=== PATIENT | male | born 1985 | race American Indian/Alaskan Native ===

== ENCOUNTER 2016-11-27 23:37 | Emergency (ER) | payer SELFPAY ==
--- NOTE | 2016-11-28 01:37 | Emergency Department Report ---
ED Lower Extremity HPI - General Chief Complaint: Extremity Injury, Lower Stated Complaint: LT KNEE PAIN Time Seen by Provider: 11/28/16 01:18 Source: patient Mode of arrival: Wheelchair Limitations: No Limitations - History of Present Illness Initial Comments: Patient comes into the ER today with complaints of left knee pain after falling down 5 steps yesterday. Patient denies any loss of consciousness, chest pain, abdominal pain. States that he was able get up on his own but he has not been able to put much weight on his left leg since the injury. The little amount weight patient has been on his legs he states that his knee does not feel stable and that it wants to give out on him. Patient denies any bleeding or any other complaints. MD Complaint: knee injury -: days(s) (1) - Related Data Previous Rx's Medication Instructions Recorded Last Taken Type Acetaminophen/Codeine [Tylenol 1 tab PO Q4HR PRN #20 tablet 11/28/16 Unknown Rx /Codeine # 3 tab] Naproxen [Naprosyn TAB] 500 mg PO BID #20 tablet 11/28/16 Unknown Rx Allergies Allergy/AdvReac Type Severity Reaction Status Date / Time No Known Allergies Allergy Unverified 11/28/16 00:18 ED Review of Systems ROS: Stated complaint: LT KNEE PAIN Other details as noted in HPI Constitutional: denies: chills, fever Eyes: denies: eye pain, eye discharge, vision change ENT: denies: ear pain, throat pain Respiratory: denies: cough, shortness of breath, wheezing Cardiovascular: denies: chest pain, palpitations Endocrine: no symptoms reported Gastrointestinal: denies: abdominal pain, nausea, diarrhea Genitourinary: denies: urgency, dysuria Musculoskeletal: joint swelling, arthralgia. denies: back pain Skin: denies: rash, lesions Neurological: denies: headache, weakness, paresthesias Psychiatric: denies: anxiety, depression Hematological/Lymphatic: denies: easy bleeding, easy bruising ED Past Medical Hx - Past Medical History Previous Medical History?: Yes Additional medical history: Right ACL tear states healed without surgery - Social History Smoking Status: Never Smoker - Medications Home Medications: Home Medications Medication Instructions Recorded Confirmed Last Taken Type Acetaminophen/Codeine [Tylenol 1 tab PO Q4HR PRN #20 tablet 11/28/16 Unknown Rx /Codeine # 3 tab] Naproxen [Naprosyn TAB] 500 mg PO BID #20 tablet 11/28/16 Unknown Rx ED Physical Exam - General Limitations: No Limitations General appearance: alert, in no apparent distress - Head Head exam: Present: atraumatic, normocephalic - Eye Eye exam: Present: normal appearance - ENT ENT exam: Present: mucous membranes moist - Neck Neck exam: Present: normal inspection - Respiratory Respiratory exam: Present: normal lung sounds bilaterally. Absent: respiratory distress - Cardiovascular Cardiovascular Exam: Present: regular rate, normal rhythm. Absent: systolic murmur, diastolic murmur, rubs, gallop - GI/Abdominal GI/Abdominal exam: Present: soft, normal bowel sounds - Rectal Rectal exam: Present: deferred - Extremities Exam Extremities exam: Present: normal inspection, tenderness (left knee with tenderness along the MCL as well as anterior joint line), normal capillary refill, joint swelling (mild medial left knee swelling), other (examination somewhat limited due to patient discomfort. Negative Lockman and anterior drawer testing). Absent: full ROM (Limited range of motion with flexion of left knee secondary to pain), pedal edema, calf tenderness - Back Exam Back exam: Present: normal inspection, full ROM. Absent: tenderness - Neurological Exam Neurological exam: Present: alert, oriented X3, CN II-XII intact, reflexes normal. Absent: motor sensory deficit - Psychiatric Psychiatric exam: Present: normal affect, normal mood - Skin Skin exam: Present: warm, dry, intact, normal color. Absent: rash ED Course Vital Signs 11/28/16 00:21 Temperature 98.5 F Pulse Rate 69 Respiratory 18 Rate Blood Pressure 136/72 O2 Sat by Pulse 99 Oximetry ED Lower Extremity MDM - Radiology Data Radiology results: image reviewed interpreted by me: Left knee x-ray: No acute dislocation or fracture noted. - Medical Decision Making X-ray results reviewed and discussed the patient room. Clinically, patient has findings concerning for MCL strain versus meniscus injury. Patient placed in left knee immobilizer as well as given crutches here in the ER. I will refer patient orthopedic for further evaluation and advised him to limit any weightbearing to left knee until symptoms improve. Patient is in agreement with treatment plan and patient is stable for discharge. Critical care attestation.: If time is entered above; I have spent that time in minutes in the direct care of this critically ill patient, excluding procedure time. ED Disposition Clinical Impression: Sprain of medial collateral ligament of left knee, Left knee pain Disposition: TO HOME OR SELFCARE Is pt being admited?: No Does the pt Need Aspirin: No Condition: Good Instructions: Knee Immobilizer (ED), Knee Sprain (ED), Crutch Instructions (ED) Prescriptions: Acetaminophen/Codeine [Tylenol /Codeine # 3 tab] 1 tab PO Q4HR PRN #20 tablet PRN Reason: Pain Naproxen [Naprosyn TAB] 500 mg PO BID #20 tablet Referrals: PRIMARY CARE, [Primary Care Provider] - 3-5 Days KENNETH CANTU MD [Staff Physician] - 3-5 Days Forms: Work/School Release Form(ED) Time of Disposition: 01:41
[2016-11-28 02:07] VITALS: BP 136/81
--- NOTE | 2016-11-28 08:25 | XRay Report ---
LEFT KNEE THREE VIEWS: 11/28/16 CLINICAL: Pain after fall. Unable to fully extend the knee. FINDINGS: No fracture or dislocation. No joint effusion. The soft tissues are normal. IMPRESSION: Normal.
== END 2016-11-28 02:07 | disposition home or self-care (01) ==
LOC: ED 23:37
DX: S83.8X2A Sprain of other specified parts of left knee, initial encounter (principal); W10.8XXA Fall (on) (from) other stairs and steps, initial encounter; Y93.89 Activity, other specified; Y99.8 Other external cause status; Y92.89 Other specified places as the place of occurrence of the external cause

== ENCOUNTER 2017-12-03 19:24 | Emergency (ER) | payer SELFPAY ==
[2017-12-03 19:33] VITALS: BP 133/74
--- NOTE | 2017-12-03 23:58 | Emergency Department Report ---
ED Laceration HPI - HPI Chief Complaint: Wound/Laceration Stated Complaint: LEFT THUMB LACERATION Time Seen by Provider: 12/03/17 23:24 Severity: mild Tetanus Status: Not up to Date Laceration Symptoms: Yes Pain, No Foreign Body Sensation, No Numbness, No Weakness Other History: 31-year-old male comes in for left thumb laceration with a knife while opening a can of food at home. Patient complains of tingling and burning. Patient reports he is able to move his finger with no problem. Bleeding has been controlled. Patient is not aware of when the last time he had a tetanus shot. Patient reports no past medical history currently takes no medications on a daily basis and has no known drug allergies. ED Review of Systems ROS: Stated complaint: LEFT THUMB LACERATION Other details as noted in HPI Constitutional: denies: chills, fever Skin: other (cut to left thumb) ED Past Medical Hx - Past Medical History Previous Medical History?: No Additional medical history: Right ACL tear states healed without surgery - Surgical History Past Surgical History?: Yes Additional Surgical History: ACL - Social History Smoking Status: Former Smoker Substance Use Type: None - Medications Home Medications: Home Medications Medication Instructions Recorded Confirmed Last Taken Type Acetaminophen/Codeine [Tylenol 1 tab PO Q4HR PRN #20 tablet 11/28/16 Unknown Rx /Codeine # 3 tab] Naproxen [Naprosyn TAB] 500 mg PO BID #20 tablet 11/28/16 Unknown Rx Laceration Physical Exam - Exam General: Vital signs noted. No distress. Alert and acting appropriately. Wound Length (cm): 1 (left dorsum thumb) Laceration Location: Upper Extremity (left thumb) Laceration Exam: Yes Normal Distal CMS, No Foreign Body, No Exposed Tendon, Vessel, or Nerve, No Tendon Injury ED Course Vital Signs 12/03/17 12/03/17 19:24 19:47 Temperature 98.9 F 98.8 F Pulse Rate 66 63 Respiratory 18 18 Rate Blood Pressure 133/74 133/74 O2 Sat by Pulse 99 99 Oximetry - Laceration /Wound Repair Left Dorsal Finger Wound Location: upper extremity Wound Length (cm): 1 Wound's Depth, Shape: superficial, linear Wound Explored: no foreign body removed Irrigated w/ Saline (ccs): 250 Betadine Prep?: Yes Wound Repaired With: Dermabond Sterile Dressing Applied?: Yes Progress: Patient tolerated procedure well. ED Medical Decision Making - Medical Decision Making Patient has been evaluated by this provider in fast track. Patient's laceration repaired by Dermabond. Patient tolerated procedure well. Discussed the patient to take Tylenol Motrin for any pain. Return back to the emergency room for any signs of infection such as purulent discharge fever swelling redness. Patient verbalized understanding Critical care attestation.: If time is entered above; I have spent that time in minutes in the direct care of this critically ill patient, excluding procedure time. ED Disposition Clinical Impression: Laceration of thumb Qualifiers: Encounter type: initial encounter Damage to nail status: without damage Foreign body presence: without foreign body Laterality: left Qualified Code(s): S61.012A - Laceration without foreign body of left thumb without damage to nail , initial encounter Disposition: DC-01 TO HOME OR SELFCARE Is pt being admited?: No Does the pt Need Aspirin: No Condition: Stable Instructions: Skin Adhesive Care (ED) Additional Instructions: Please keep wound clean and dry. He can take Tylenol or Motrin for pain management. Please return to the emergency room if he have any signs of infection such as purulent discharge, fever, swelling and redness. Referrals: PRIMARY CARE, [Primary Care Provider] - 3-5 Days Forms: Accompanied Note, Work/School Release Form(ED)
[2017-12-04] MEDS ORDERED: BOOSTRIX IM ONE ×2 (00:01)
== END 2017-12-04 00:10 | disposition home or self-care (01) ==
LOC: ED 19:24
DX: S61.012A Laceration without foreign body of left thumb without damage to nail, initial encounter (principal); Z87.891 Personal history of nicotine dependence; W26.0XXA Contact with knife, initial encounter; Y93.89 Activity, other specified; Y99.8 Other external cause status; Y92.019 Unspecified place in single-family (private) house as the place of occurrence of the external cause
CPT/HCPCS: 90471; 90715; 99282

== ENCOUNTER 2019-01-06 01:01 | Emergency (ER) | payer SELFPAY | END 2019-01-06 01:50 | disposition left against medical advice (07) | LOC: ED 01:01 | DX: H57.89 Other specified disorders of eye and adnexa (principal); Z53.21 Procedure and treatment not carried out due to patient leaving prior to being seen by health care provider ==